=== PATIENT | female | born 1985 | race Caucasian/White ===

== ENCOUNTER 2016-10-11 02:10 | Emergency (ER) | payer MEDICAID ==
[~2016-10-11] VITALS: Ht 162.6 cm; Wt 102.5 kg
[2016-10-11 02:17] VITALS: BP 134/72
--- NOTE | 2016-10-11 02:35 | NUR ---
TO ER BED 5
--- NOTE | 2016-10-11 02:43 | NUR ---
31 Y/O F BIB SPOUSE C/O CHEST PAIN AND RESP DISTRESS. PT SAT 98%, PINK, NO NASAL FLARING NOTED AT THIS MOMENT. COARSE SOUNDS NOTED BILTERAL UPPER/LOWER LOBES, SLIGHTLY WHEEZING TOWARDS MIDDLE CHEST. RT CALLED AT BEDSIDE, ER MD NOTIFIED. PT ON TRAILER SECTIONS ASSEMBLER AND PULSEOXIMETER. VSS.
[2016-10-11] MEDS ORDERED: ALBUTEROL SULFATE/IPRATROPIU 3 ML SOL IH ONE ×2 (02:55→04:05)
[2016-10-11] MEDS ORDERED: LORazepam 2 MG/ML VIAL IVP ONE (02:55)
[2016-10-11] MEDS ORDERED: methylPREDNISolone SS 125 MG in WATER STERILE 2 ML IM ONE (04:05)
--- NOTE | 2016-10-11 05:47 | NUR ---
PT RESTING/ ASLEEP NO S/S OF DISTRESS NOTED AT THIS TIME.
[2016-10-11 06:45] VITALS: BP 127/77
--- NOTE | 2016-10-11 06:45 | NUR ---
Patient discharged with v/s stable. Written and verbal after care instructions given and explained. Patient alert, oriented and verbalized understanding of instructions. Ambulatory with steady gait. All questions addressed prior to discharge. ID band removed. Patient advised to follow up with PMD OR COME BACK IF CONDITION GETS WORSE OR DOES NOT IMPROVES. Rx of ALBUTEROL,QVAR, AND PREDNISONE given. Patient educated on indication of medication including possible reaction and side effects. Opportunity to ask questions provided and answered.
== END 2016-10-11 06:45 | disposition home or self-care (01) ==
LOC: MED 02:10
DX: O99.52 Diseases of the respiratory system complicating childbirth (principal); J98.01 Acute bronchospasm; Z3A.11 11 weeks gestation of pregnancy
CPT/HCPCS: 36415; 83880; 94640; 96372; 99285; J2060; J2930; J7620

== ENCOUNTER 2017-01-23 12:27 | Emergency (ER) | payer MEDICAID ==
[~2017-01-23] VITALS: Ht 162.6 cm; Wt 110.7 kg
[2017-01-23 12:36] VITALS: BP 138/69
--- NOTE | 2017-01-23 13:08 | NUR ---
FHT 146
[2017-01-23] MEDS ORDERED: ACETAMINOPHEN EXTRA STRENGTH 500 MG TAB PO ONE (16:30)
[2017-01-23] MEDS ORDERED: ONDANSETRON 4 MG ODT PO ONE (16:30)
--- NOTE | 2017-01-23 16:30 | NUR ---
32 F PRESENT TO ER C/O BILATERAL UPPER EXTREMITIES PARESTHESIA PAIN AND RIGHT SIDED SHARP PAIN X 3 WKS. WORSE TODAY AND NOW CHEST PAIN x 4 DAYS TO LEFT SHARP----FULL CLEAR SPEECH, SKIN DRY PINK WARM TO TOUCH; DUE DATE 04/19/[address] SAUCEDO OB [phone] HX----DENIES RX---- VIT
--- NOTE | 2017-01-23 16:48 | NUR ---
Patient being evaluated by physician at bedside.
--- NOTE | 2017-01-23 17:31 | NUR ---
PATIENT RESTING. DENIES N/V/D; SKIN IS PINK/WARM/DRY; AAOX4 WITH EVEN AND STEADY GAIT; LUNGS CLEAR BL; HR EVEN AND TACHY; PT DENIES ANY FEVER OR COUGH AT THIS TIME; PATIENT STATES CHEST PAIN PAIN OF 7/10 AT THIS TIME;PATIENT POSITIONED FOR COMFORT; HOB ELEVATED; BEDRAILS UP X2; BED DOWN. ER MD MADE AWARE OF PT STATUS.
--- NOTE | 2017-01-23 17:40 | NUR ---
Patient to be transferred to [facility]. Is being transferred due to HIGHER LEVEL OF CARE. Receiving facility has accepting physician and available space. ER physician has signed transfer form. Patient or responsible republican has agreed to transfer and signed form. Patient belongings inventoried and will be sent with patient. Copy of nursing notes, lab reports, EKG, Physicians Orders and X-rays to be sent with patient. Report called to EMANUEL MOYA at receiving facility. [facility] ambulance service has been called for transfer. ETA is 15-20 MINUTES.
--- NOTE | 2017-01-23 17:52 | NUR ---
[facility] AT BEDSIDE TO TRANSPORT PATIENT TO [facility]
[2017-01-23 17:53] VITALS: BP 131/72
== END 2017-01-23 17:52 | disposition short-term general hospital (02) ==
LOC: MED 12:27
DX: O26.892 Other specified pregnancy related conditions, second trimester (principal); R07.89 Other chest pain; Z3A.26 26 weeks gestation of pregnancy; R06.00 Dyspnea, unspecified
CPT/HCPCS: 81002; 81025; 93970; 99291; S0119

== ENCOUNTER 2017-02-04 16:03 | Observation (INO) | payer MEDICAID ==
[~2017-02-04] VITALS: Ht 157.5 cm; Wt 94.3 kg
[2017-02-04] MEDS ORDERED: PRENATAL VITAMI1 TA2 PO (17:06)
== END 2017-02-04 17:45 | disposition left against medical advice (07) ==
LOC: MLD 16:03
PROVIDERS: ADMIT Obstetrics & Gynecology; ATTEND Obstetrics & Gynecology
DX: O26.893 Other specified pregnancy related conditions, third trimester (principal); R10.13 Epigastric pain; R07.81 Pleurodynia; Z3A.35 35 weeks gestation of pregnancy

== ENCOUNTER 2018-02-15 19:57 | Emergency (ER) | payer MEDICAID ==
[~2018-02-15] VITALS: Ht 157.5 cm; Wt 100.2 kg
[~2018-02-15 19:57] MED LIST: PREN-546 PO
[2018-02-15 19:59] VITALS: BP 139/71
--- NOTE | 2018-02-15 20:03 | NUR ---
TO LOBBY, YVES AGUILAR, A/W BED, PIERCE NOTED
--- NOTE | 2018-02-15 20:15 | NUR ---
PATIENT LEFT WITHOUT BEING SEEN BY DR. MASON. NO FURTHER CARE PROVIDED FOR PATIENT.
== END 2018-02-15 20:15 | disposition left against medical advice (07) ==
LOC: MED 19:57
DX: R06.02 Shortness of breath (principal); R07.9 Chest pain, unspecified; Z53.21 Procedure and treatment not carried out due to patient leaving prior to being seen by health care provider

== ENCOUNTER 2019-03-15 23:51 | Emergency (ER) | payer MEDICAID ==
[~2019-03-15] VITALS: Ht 157.5 cm; Wt 103.4 kg
[2019-03-15 23:56] VITALS: BP 115/75
--- NOTE | 2019-03-16 00:10 | NUR ---
PT AMBULATED W/ STEADY GAIT TO BED 9, URINE SAMPLE PROVIDED.
--- NOTE | 2019-03-16 00:13 | NUR ---
DR. MASON AT BEDSIDE.
[2019-03-16 00:55] LABS: BASOPHILS % (AUTO) 0.2 % (0.0-2.0); EOSINOPHILS # (AUTO) 0.3 K/uL (0-0.4); HEMATOCRIT 35.5 % (36-48); HEMOGLOBIN 11.7 g/dL (12.0-16.0); LYMPHOCYTES # (AUTO) 2.3 K/uL (2.5-16.5); LYMPHOCYTES % (AUTO) 20.2 % (20.5-51.1); MEAN CORPUSCULAR HEMOGLOBIN 27 pg (27-31); MEAN CORPUSCULAR HGB CONC 33 g/dL (33-37); MEAN CORPUSCULAR VOLUME 82.9 fL (80-94); MONOCYTES # (AUTO) 0.7 K/uL (0.8-1.0); MONOCYTES % (AUTO) 6.6 % (1.7-9.3); NEUTROPHILS # (AUTO) 7.8 K/uL (1.8-7.7); PLATELET COUNT (AUTO) 236 K/uL (140-450); RED BLOOD CELL COUNT(AUTO) 4.28 MIL/uL (4.20-5.40); RED CELL DISTRIBUTION WIDTH 15.2 % (11.6-13.7); WHITE BLOOD COUNT (AUTO) 11.2 K/uL (4.8-10.8)
[2019-03-16 00:57] LABS: APPEARANCE,URINE CLEAR (CLEAR); BILIRUBIN,URINE NEGATIVE (NEGATIVE); BLOOD, URINE NEGATIVE (NEGATIVE); COLOR,URINE YELLOW (YELLOW); LEUKOCYTE ESTERASE ,URINE NEGATIVE (NEGATIVE); NITRITE, URINE NEGATIVE (NEGATIVE); PH,URINE 7.5 (5.0-9.0); UGLUCOSE NEGATIVE (NEGATIVE)
--- NOTE | 2019-03-16 01:25 | NUR ---
PT PRESENTS TO ED WITH LOWER ABDOMINAL PAIN THAT RADIATES TO LOWER BACK AND UPPER ABDOMEN. PT CURRENTLY . LMP 01/29/2019. AWAITING DR ASSESSMENT.
[2019-03-16 02:53] VITALS: BP 115/75
== END 2019-03-16 02:54 | disposition home or self-care (01) ==
LOC: MED 23:51
DX: O26.891 Other specified pregnancy related conditions, first trimester (principal); R10.30 Lower abdominal pain, unspecified; Z3A.01 Less than 8 weeks gestation of pregnancy; Z79.899 Other long term (current) drug therapy
CPT/HCPCS: 36415; 76801; 81003; 81025; 84702; 85025; 86900; 86901; 99284; Q0092

== ENCOUNTER 2019-06-14 19:13 | Inpatient (IN) | payer MEDICAID ==
[~2019-06-14] VITALS: Ht 160 cm; Wt 111.1 kg
[2019-06-14] MEDS: NACL 0.9% 1,000 ML IV SCH (01:35)
[2019-06-14 19:27] VITALS: BP 124/86
--- NOTE | 2019-06-14 19:39 | NUR ---
34/F PRESENTED TO ED WITH C/O MID CHEST PAIN 10/10 RADIATING TO BOTH ARMS, X1 HR. DENIES N/V. 5 MONTHS , A1. DENIES VAG BLEED. VITAL SIGNS STABLE. O2 SAT 100% ROOM AIR. HX HTN, ASTHMA; DENIES RX. DENIES ALLERGIES.
--- NOTE | 2019-06-14 19:39 | NUR ---
Note undone in EDM - 06/14/19 at 2057 by [email or web address] 34/F PRESENTED TO ED WITH C/O MID CHEST PAIN 06/20 RADIATING TO BOTH ARMS, X1 HR. DENIES N/V. 5 WEEKS , A1. DENIES VAG BLEED. VITAL SIGNS STABLE. O2 SAT 100% ROOM AIR. HX HTN, ASTHMA; DENIES RX. DENIES ALLERGIES.
[2019-06-14] MEDS ORDERED: NACL 0.9% 1,000 ML IV ONE (20:05)
[2019-06-14] MEDS ORDERED: ACETAMINOPHEN EXTRA STRENGTH 500 MG TAB PO ONE (20:05)
[2019-06-14] MEDS ORDERED: ALBUTEROL SULFATE/IPRATROPIU 3 ML SOL IH ONE (20:05)
[2019-06-14 20:30] LABS: BASOPHILS % (AUTO) 0.1 % (0.0-2.0); EOSINOPHILS # (AUTO) 0.2 K/uL (0-0.4); EOSINOPHILS % (AUTO) 2.1 % (0.0-4.0); HEMATOCRIT 36.1 % (36-48); HEMOGLOBIN 11.7 g/dL (12.0-16.0); LYMPHOCYTES # (AUTO) 1.7 K/uL (2.5-16.5); LYMPHOCYTES % (AUTO) 14.6 % (20.5-51.1); MEAN CORPUSCULAR HEMOGLOBIN 28 pg (27-31); MEAN CORPUSCULAR HGB CONC 32 g/dL (33-37); MEAN CORPUSCULAR VOLUME 85.4 fL (80-94); MONOCYTES # (AUTO) 0.7 K/uL (0.8-1.0); NEUTROPHILS # (AUTO) 9.2 K/uL (1.8-7.7); NEUTROPHILS % (AUTO) 77.2 % (42.2-75.2); PLATELET COUNT (AUTO) 232 K/uL (140-450); RED BLOOD CELL COUNT(AUTO) 4.23 MIL/uL (4.20-5.40); RED CELL DISTRIBUTION WIDTH 15.4 % (11.6-13.7)
--- NOTE | 2019-06-14 20:45 | NUR ---
HHN THERAPY AND RESIRATORY DRUG GIVEN ORDERED ENCOURAGED PATIENT FOR INTERMITTENT DEEP BREATHING DURING THERAPY
[2019-06-14 20:52] LABS: ANION GAP 11.2 (8-16); CREATININE 0.4 mg/dL (0.6-1.3); POTASSIUM 3.2 mmol/L (3.5-5.1)
[2019-06-14 20:56] LABS: ALBUMIN 2.9 g/dL (3.4-5.0); TOTAL BILIRUBIN 0.4 mg/dL (0.0-1.0)
--- NOTE | 2019-06-14 20:56 | NUR ---
X RAY AT BEDSIDE
--- NOTE | 2019-06-14 22:28 | NUR ---
PT IS RESTING IN BED, NO COMPLAINTS AT THIS TIME. WILL CONTINUE TO MONITOR.
[2019-06-14] MEDS ORDERED: methylPREDNISolone SS 40 MG in WATER STERILE 1 ML IV ONE (23:35)
[2019-06-14] MEDS ORDERED: DOCUSATE SODIUM 100 MG GELCAP PO PRN (23:55)
[2019-06-14] MEDS ORDERED: ONDANSETRON 4 MG/2 ML VIAL IM/IVP PRN (23:55)
[2019-06-15] MEDS ORDERED: ALBUTEROL SULFATE/IPRATROPIU 3 ML SOL IH PRN (00:20)
[2019-06-15 00:45] VITALS: BP 118/64
--- NOTE | 2019-06-15 00:45 | NUR ---
RECEIVED BEDSIDE REPORT FROM ED RN AMELIA, FOR PT'S CONTINUITY OF CARE. PT IS AAOX4, AMBULATORY, [place] SPEAKING, ON PRODUCT DEVELOPMENT CARPENTER, ON ROOM AIR, HAS LEFT AC 20G SALINE LOCK, AND C/O CHEST PAIN 04/20. VS CHECKED AND CHARTED. EXPLAINED TO PT DOCKET CLERK ROUTINE, PT VERBALIZED UNDERSTANDING. WILL MONITOR PT THROUGHOUT SHIFT.
--- NOTE | 2019-06-15 00:52 | NUR ---
Patient will be admitted to care of [facility]. Admited to TELE. Will go to room 112B. Belongings list completed. Report to CHERIE CASTELLANOS. PT STABLE FOR TRANSFER
[2019-06-15] MEDS ORDERED: ACETAMINOPHEN 325 MG TAB PO PRN (01:30)
--- NOTE | 2019-06-15 01:45 | NUR ---
ADMINISTERED IV FLUID ORDERED, ADMINISTERED PRN PO PAIN MEDICATION ORDERED. PT TOLERATED THEM WELL. ASSISTED PT TO RESTROOM. WILL CONTINUE TO MONITOR PT.
[2019-06-15] MEDS ORDERED: NITROGLYCERIN 0.4 MG TAB SL ONE (01:50)
[2019-06-15 04:00] VITALS: BP 130/69
[2019-06-15 04:00] LABS: MAGNESIUM 1.7 mg/dL (1.8-2.4); PHOSPHORUS 4.7 mg/dL (2.5-4.9); THYROID STIMULATING HORMONE 1.57 uIU/mL (0.34-3.74)
[2019-06-15 04:06] LABS: PROTHROMBIN TIME 9.3 secs (10.8-13.4)
[2019-06-15] MEDS ORDERED: MAGNESIUM OXIDE 400 MG TAB PO ONE (04:15)
--- NOTE | 2019-06-15 04:15 | NUR ---
VS CHECKED AND CHARTED. PT DENIES ANY PAIN BUT C/O HUNGER. EXPLAINED TO PT NPO STATUS. PT VERBALIZED UNDERSTANDING. WILL CONTINUE TO MONITOR PT.
[2019-06-15 06:47] LABS: BASOPHILS % (AUTO) 0.1 % (0.0-2.0); EOSINOPHILS % (AUTO) 0.3 % (0.0-4.0); HEMATOCRIT 33.3 % (36-48); HEMOGLOBIN 11.1 g/dL (12.0-16.0); LYMPHOCYTES # (AUTO) 1.1 K/uL (2.5-16.5); LYMPHOCYTES % (AUTO) 8.8 % (20.5-51.1); MEAN CORPUSCULAR HEMOGLOBIN 28 pg (27-31); MEAN CORPUSCULAR HGB CONC 33 g/dL (33-37); MONOCYTES # (AUTO) 0.2 K/uL (0.8-1.0); MONOCYTES % (AUTO) 1.7 % (1.7-9.3); NEUTROPHILS # (AUTO) 10.9 K/uL (1.8-7.7); NEUTROPHILS % (AUTO) 89.1 % (42.2-75.2); PLATELET COUNT (AUTO) 226 K/uL (140-450); RED BLOOD CELL COUNT(AUTO) 3.92 MIL/uL (4.20-5.40); RED CELL DISTRIBUTION WIDTH 15.4 % (11.6-13.7); WHITE BLOOD COUNT (AUTO) 12.3 K/uL (4.8-10.8)
[2019-06-15] MEDS: ALBUTEROL SULFATE/IPRATROPIU 3 ML SOL IH SCH ×3 (07:03→19:38)
--- NOTE | 2019-06-15 07:05 | NUR ---
PT C/O OF LEFT SIDE HEADACHE. EXPLAINED TO PT TYLENOL NOT AVAILABLE TO GIVE YET. WILL ENDORSE TO AM SHIFT RN FOR PT'S CONTINUITY OF CARE.
--- NOTE | 2019-06-15 07:06 | NUR ---
RECEIVED BEDSIDE REPORT FROM RECREATION CLERK NURSE FOR CONTINUITY OF CARE. PT IS AAOX4, AMBULATORY, [place]ENLAND[place] SPEAKING, ON LEAD ANDROID DEVELOPER, NO S/S OF SOB OR RESPIRATORY DISTRESS ON ROOM AIR. IV TO LEFT AC 20G, ASYMPTOMATIC, INTACT, AND INFUSING IVF WELL. C/O HEADACHE AT THIS TIME. PATIENT AWARE OF NEXT SCHEDULED TYLENOL. WILL REASSESS PATIENT'S PAIN AND MEDICATE ORDERED. PT CURRENTLY NPO EXCEPT MEDS. UPDATED BOARD. VERBALIZED PLAN OF CARE, PATIENT VERBALIZED UNDERSTANDING. CALL LIGHT WITHIN REACH. WILL CONTINUE TO MONITOR PATIENT.
[2019-06-15 07:08] LABS: CARBON DIOXIDE 20.8 mmol/L (21-32); CREATININE 0.4 mg/dL (0.6-1.3); POTASSIUM 3.8 mmol/L (3.5-5.1)
[2019-06-15 08:00] VITALS: BP 130/66
[2019-06-15] MEDS: ATORVASTATIN 20 MG TAB PO SCH (08:28)
[2019-06-15] MEDS: ASPIRIN 81 MG TAB.CHEW PO SCH (08:28)
[2019-06-15] MEDS: MULTIVIT/MIN/CA/FE/FA 1 TAB PO SCH (08:28)
[2019-06-15] MEDS: LISINOPRIL 5 MG TAB PO SCH ×2 (08:29→09:00)
[2019-06-15] MEDS: FERROUS SULFATE 325 MG TABEC PO SCH (08:31)
--- NOTE | 2019-06-15 08:31 | NUR ---
ORDERED MEDICATIONS GIVEN AT THIS TIME. PATIENT TOLERATED THEM WELL. SPOKE TO DR. LIVINGSTON ABOUT PATIENT'S NPO ORDER. NEW ORDERS IN FOR REGULAR DIET. CALLED DIETARY FOR BREAKFAST TRAY. PATIENT AWARE THAT SHE CAN EAT. LISINOPRIL WITHHELD AT THIS TIME UNTIL SPOKEN TO DOCTOR AND PHARMACIST.
--- NOTE | 2019-06-15 09:20 | NUR ---
DR. LIVINGSTON IN TO SEE PATIENT. WILL WAIT FOR HIS NEW ORDERS.
[2019-06-15 09:23] LABS: MAGNESIUM 1.8 mg/dL (1.8-2.4); PHOSPHORUS 2.7 mg/dL (2.5-4.9)
--- NOTE | 2019-06-15 09:30 | NUR ---
SPOKE TO PHARMACIST ABOUT LISINOPRIL DOSE. SPOKE TO DR. LIVINGSTON. HE STATED HE WILL DISCONTINUE MEDICATION. PATIENT CURRENTLY SITTING UP EATING BREAKFAST IN BED. NO COMPLAINTS AT THIS TIME. OFFERED TYLENOL FOR HEADACHE, PATIENT STATED THAT PAIN IS "PEQUITO", TOLERABLE, NOT REQUESTING FOR PAIN MEDICATION AT THIS TIME. WILL CONTINUE TO MONITOR PATIENT.
[2019-06-15] MEDS ORDERED: methylPREDNISolone SS 40 MG/ML VIAL IVP SCH (11:15)
--- NOTE | 2019-06-15 11:40 | NUR ---
EXPLAINED MEDICATION TO PATIENT. PATIENT VERBALIZED UNDERSTANDING. ORDERED MEDICATION GIVEN AT THIS TIME. PATIENT TOLERATED IT WELL. ALL NEEDS MET AT THIS TIME. NO C/O CHEST PAIN OR NAUSEA. WILL CONTINUE TO MONITOR PATIENT.
[2019-06-15 12:00] VITALS: BP 126/62
--- NOTE | 2019-06-15 12:40 | NUR ---
PATIENT SITTING UP ON SIDE OF BED EATING LUNCH. ALL NEEDS MET AT THIS TIME. CALL LIGHT WITHIN REACH. WILL CONTINUE TO MONITOR PATIENT.
--- NOTE | 2019-06-15 14:05 | NUR ---
AT BEDSIDE. PATIENT RELAXED IN BED WATCHING TV. NO COMPLAINTS OF PAIN OR NAUSEA AT THIS TIME. CALL LIGHT WITHIN REACH, WILL CONTINUE TO MONITOR PATIENT.
[2019-06-15] MEDS: NACL 0.9% 1,000 ML IV SCH (16:35)
[2019-06-15 16:44] VITALS: BP 128/61
--- NOTE | 2019-06-15 18:46 | NUR ---
PATIENT VOIDED. URINE SAMPLE OBTAINED. URINE SAMPLE DROPPED OFF AT LAB. WILL WAIT FOR RESULTS. PATIENT'S HSUBAND AT BEDSIDE. WILL CONTINUE TO MONITOR PATIENT.
--- NOTE | 2019-06-15 18:56 | NUR ---
CALLED LABOR [facility] DELIVERY TO INFORM THEM OF DOCTOR'S ORDER OF HEART TONES TAKEN Q12H. THEY STATED THEY WILL ENDORSE TO SENIOR SALES COMPENSATION ANALYST NURSE.
--- NOTE | 2019-06-15 19:10 | NUR ---
REPORT GIVEN TO ATHLETIC SCOUT NURSE AT BEDSIDE FOR CONTINUITY OF CARE. PATIENT IN STABLE CONDITION.
[2019-06-15 19:15] LABS: APPEARANCE,URINE CLEAR (CLEAR); BILIRUBIN,URINE NEGATIVE (NEGATIVE); BLOOD, URINE NEGATIVE (NEGATIVE); COLOR,URINE YELLOW (YELLOW); LEUKOCYTE ESTERASE ,URINE NEGATIVE (NEGATIVE); NITRITE, URINE NEGATIVE (NEGATIVE); UGLUCOSE 2+ (NEGATIVE)
[2019-06-15 19:18] LABS: BARBITURATE, URINE NEG. ng/ml (NEG <=200); BENZODIAZEPINE, URINE NEG. ng/mL (NEG <=200); CANNABINOID, URINE NEG. ng/mL (NEG <=50); COCAINE, URINE NEG. ng/mL (NEG <=300); OPIATE, URINE NEG. ng/mL (NEG <=2000); PHENCYCLIDINE SCREEN,URINE NEG. ng/mL (NEG <=25)
--- NOTE | 2019-06-15 19:26 | NUR ---
RECEIVED BEDSIDE REPORT FROM DAY SHIFT NURSE. PATIENT IS AWAKE, ALERT, AND COOPERATIVE. RESPIRATION EVEN UNLABORED ON ROOM AIR. NO DISTRESS NOTED. SKIN IS WARM AND DRY. IV PATENT AND INTACT. PLAN OF CARE WAS DISCUSSED. ALL SAFETY MEASURES IN PLACE. BED IS AT LOW POSITION. CALL LIGHT WITHIN REACH AND VERBALIZES ITS USE. WILL CONTINUE TO MONITOR.
[2019-06-15] MEDS: BUDESONIDE 0.5 MG/2 ML NEBU INH SCH (19:39)
[2019-06-15 20:00] VITALS: BP 135/58
--- NOTE | 2019-06-15 20:00 | NUR ---
VITALS WERE TAKEN. INITIAL ASSESSMENT DONE. PATIENT IN STABLE CONDITION. CALL LIGHT WITHIN REACH. WILL CONTINUE TO MONITOR.
[2019-06-15] MEDS ORDERED: MELATONIN 3 MG TAB PO SCH (21:00)
--- NOTE | 2019-06-15 21:00 | NUR ---
ALL SCHEDULED MEDS WERE GIVEN PER ORDER. NO ASE NOTED. WILL CONTINUE TO MONITOR.
[2019-06-15] MEDS: methylPREDNISolone SS 40 MG/ML VIAL IVP SCH (21:20)
--- NOTE | 2019-06-15 22:00 | NUR ---
HEART TONE WAS DONE BY L&D NURSE. HEART RATE 162. NOTIFIED DR. WINTER. NO NEW ORDERS RECEIVED. WILL CONTINUE TO MONITOR.
--- NOTE | 2019-06-15 22:56 | NUR ---
PATIENT SLEEPING RESPIRATION EVEN UNLABORED ON ROOM AIR. NO DISTRESS NOTED. WILL CONTINUE TO MONITOR.
[2019-06-16] VITALS: BP 136/62
--- NOTE | 2019-06-16 | NUR ---
VITALS WERE TAKEN. PATIENT IN STABLE CONDITION. CALL LIGHT WITHIN REACH. WILL CONTINUE TO MONITOR.
--- NOTE | 2019-06-16 02:09 | NUR ---
CHECKED ON PATIENT. PATIENT SLEEPING RESPIRATION EVEN UNLABORED ON ROOM AIR. NO DISTRESS NOTED. CALL LIGHT WITHIN REACH. WILL CONTINUE TO MONITOR.
[2019-06-16 04:00] VITALS: BP 123/62
--- NOTE | 2019-06-16 04:00 | NUR ---
VITALS WERE TAKEN. PATIENT IN STABLE CONDITION. NO DISTRESS NOTED. WILL CONTINUE TO MONITOR.
--- NOTE | 2019-06-16 07:11 | NUR ---
ENDORSED PATIENT TO DAY SHIFT NURSE FOR CONTINUITY OF CARE. PATIENT IN STABLE CONDITION,
--- NOTE | 2019-06-16 07:12 | NUR ---
RECEIVED BEDSIDE REPORT FROM ADJUNCT PHYSICS INSTRUCTOR NURSE FOR CONTINUITY OF CARE. PT IS AAOX4, AMBULATORY, [place] SPEAKING, ON CLOTHES SEPARATOR, NO S/S OF SOB OR RESPIRATORY DISTRESS ON ROOM AIR. IV TO LEFT AC 20G, ASYMPTOMATIC, INTACT, AND INFUSING IVF WELL. PATIENT CURRENTLY GETTING BREATHING TREATMENT. VS WNL. PATIENT DENIES PAIN AND NAUSEA. UPDATED BOARD. VERBALIZED PLAN OF CARE, PATIENT VERBALIZED UNDERSTANDING. CALL LIGHT WITHIN REACH. WILL CONTINUE TO MONITOR PATIENT.
[2019-06-16] MEDS: BUDESONIDE 0.5 MG/2 ML NEBU INH SCH (07:17)
[2019-06-16] MEDS: ALBUTEROL SULFATE/IPRATROPIU 3 ML SOL IH SCH (07:18)
[2019-06-16 08:00] VITALS: BP 123/56
--- NOTE | 2019-06-16 08:40 | NUR ---
DR LIVINGSTON IN TO SPEAK TO THE PATIENT. WILL WAIT FOR HIS ORDERS.
[2019-06-16] MEDS: ATORVASTATIN 20 MG TAB PO SCH (09:00)
[2019-06-16] MEDS: MULTIVIT/MIN/CA/FE/FA 1 TAB PO SCH (09:14)
[2019-06-16] MEDS: FERROUS SULFATE 325 MG TABEC PO SCH (09:14)
[2019-06-16] MEDS: ASPIRIN 81 MG TAB.CHEW PO SCH (09:15)
[2019-06-16] MEDS: NACL 0.9% 1,000 ML IV SCH (09:15)
--- NOTE | 2019-06-16 09:15 | NUR ---
ORDERED MEDICATIONS GIVEN. PATIENT TOLERATED THEM WELL. AT BEDSIDE. PATIENT AWARE OF IMPENDING DISCHARGE. WILL UPDATED PATIENT ON DISCHARGE STATUS. PATIENT VERBALIZED UNDERSTANDING. WILL CONTINUE TO MONITOR PATIENT.
[2019-06-16] MEDS: methylPREDNISolone SS 40 MG/ML VIAL IVP SCH (09:18)
[2019-06-16] MEDS ORDERED: BUDE180P IH (09:48)
[2019-06-16] MEDS ORDERED: ALBU0.0912 IH (09:48)
--- NOTE | 2019-06-16 10:35 | NUR ---
DISCHARGE INSTRUCTIONS AND EDUCATION GIVEN TO PATIENT. [employer] PHONE USED, TERMITE CONTROL SERVICER #[id number]. INFORM PATIENT TO FOLLOW UP WITH PCP AND HEEL DIPPER, TAKE MEDICATIONS PRESCRIBED AND NEEDED. PATIENT VERBALIZED UNDERSTANDING. AT SIDE. ID BANDS CUT, IV REMOVED, IV CATHETER INTACT, MINIMAL BLEEDING NOTED, TELE MONITOR REMOVED. PATIENT WILL NOW CHANGE INTO HER OWN CLOTHING TO GET READY TO BE DISCHARGED HOME.
--- NOTE | 2019-06-16 10:50 | NUR ---
PATIENT AMBULATED OFF FLOOR WITH . PATIENT TOOK ALL HER BELONGINGS WITH HER. PATIENT IN STABLE CONDITION.
== END 2019-06-16 10:50 | disposition home or self-care (01) | DRG 566 ==
LOC: MED 19:13 → MTU 23:55
PROVIDERS: ADMIT Family Medicine; ATTEND Family Medicine
DX: O99.612 Diseases of the digestive system complicating pregnancy, second trimester (principal); J96.00 Acute respiratory failure, unspecified whether with hypoxia or hypercapnia; E44.0 Moderate protein-calorie malnutrition; E66.01 Morbid (severe) obesity due to excess calories; Z68.41 Body mass index [BMI] 40.0-44.9, adult; O26.892 Other specified pregnancy related conditions, second trimester; J45.901 Unspecified asthma with (acute) exacerbation; E83.42 Hypomagnesemia; O99.112 Other diseases of the blood and blood-forming organs and certain disorders involving the immune mechanism complicating pregnancy, second trimester; O99.512 Diseases of the respiratory system complicating pregnancy, second trimester; O99.282 Endocrine, nutritional and metabolic diseases complicating pregnancy, second trimester; E87.6 Hypokalemia; O99.212 Obesity complicating pregnancy, second trimester; O99.322 Drug use complicating pregnancy, second trimester; F15.90 Other stimulant use, unspecified, uncomplicated; K21.9 Gastro-esophageal reflux disease without esophagitis; M94.0 Chondrocostal junction syndrome [Tietze]; D72.828 Other elevated white blood cell count; Z82.5 Family history of asthma and other chronic lower respiratory diseases; Z83.3 Family history of diabetes mellitus; Z82.3 Family history of stroke; Z82.49 Family history of ischemic heart disease and other diseases of the circulatory system; Z3A.20 20 weeks gestation of pregnancy; T38.0X5A Adverse effect of glucocorticoids and synthetic analogues, initial encounter; Y92.89 Other specified places as the place of occurrence of the external cause
CPT/HCPCS: 36415; 71045; 80048; 80053; 80305; 81003; 81025; 82150; 83036; 83605; 83690; 83735; 83880; 84100; 84436; 84443; 84484; 85025; 85610; 85730; 87081; 87804; 93005; 94640; 96361; 96374; 99285; J2920; J7030; J7620; J7626; Q0092

== ENCOUNTER 2019-07-18 12:05 | Observation (INO) | payer MEDICAID ==
[~2019-07-18] VITALS: Ht 157.5 cm; Wt 115.2 kg
[~2019-07-18 12:05] MED LIST changes: +ALBU0.0912 IH; +BUDE180P IH
[2019-07-18] MEDS ORDERED: ACETAMINOPHEN 325 MG TAB PO PRN (13:30)
[2019-07-18 14:29] LABS: BASOPHILS % (AUTO) 0.3 % (0.0-2.0); EOSINOPHILS # (AUTO) 0.2 K/uL (0-0.4); EOSINOPHILS % (AUTO) 1.9 % (0.0-4.0); HEMATOCRIT 35.6 % (36-48); HEMOGLOBIN 11.7 g/dL (12.0-16.0); LYMPHOCYTES # (AUTO) 1.5 K/uL (2.5-16.5); LYMPHOCYTES % (AUTO) 13.6 % (20.5-51.1); MEAN CORPUSCULAR HEMOGLOBIN 28 pg (27-31); MEAN CORPUSCULAR HGB CONC 33 g/dL (33-37); MEAN CORPUSCULAR VOLUME 85.2 fL (80-94); MONOCYTES # (AUTO) 0.8 K/uL (0.8-1.0); MONOCYTES % (AUTO) 6.7 % (1.7-9.3); NEUTROPHILS # (AUTO) 8.8 K/uL (1.8-7.7); NEUTROPHILS % (AUTO) 77.5 % (42.2-75.2); PLATELET COUNT (AUTO) 233 K/uL (140-450); RED BLOOD CELL COUNT(AUTO) 4.17 MIL/uL (4.20-5.40); RED CELL DISTRIBUTION WIDTH 15.9 % (11.6-13.7); WHITE BLOOD COUNT (AUTO) 11.4 K/uL (4.8-10.8)
[2019-07-18 14:30] LABS: BILIRUBIN,URINE NEGATIVE (NEGATIVE); BLOOD, URINE NEGATIVE (NEGATIVE); COLOR,URINE YELLOW (YELLOW); LEUKOCYTE ESTERASE ,URINE NEGATIVE (NEGATIVE); NITRITE, URINE NEGATIVE (NEGATIVE); UGLUCOSE 1+ (NEGATIVE)
[2019-07-18 14:36] LABS: BARBITURATE, URINE NEG. ng/ml (NEG <=200); BENZODIAZEPINE, URINE NEG. ng/mL (NEG <=200); CANNABINOID, URINE NEG. ng/mL (NEG <=50); COCAINE, URINE NEG. ng/mL (NEG <=300); OPIATE, URINE NEG. ng/mL (NEG <=2000); PHENCYCLIDINE SCREEN,URINE NEG. ng/mL (NEG <=25)
[2019-07-18 14:39] LABS: APPEARANCE,URINE CLEAR (CLEAR)
[2019-07-18 15:28] LABS: PROTHROMBIN TIME 9.4 secs (10.8-13.4)
[2019-07-18 15:33] LABS: CARBON DIOXIDE 22.6 mmol/L (21-32); CREATININE 0.5 mg/dL (0.6-1.3); POTASSIUM 3.6 mmol/L (3.5-5.1)
[2019-07-18 15:39] LABS: ALBUMIN 2.6 g/dL (3.4-5.0); TOTAL BILIRUBIN 0.4 mg/dL (0.0-1.0); URIC ACID 3.5 mg/dL (2.6-7.2)
== END 2019-07-18 14:40 | disposition home or self-care (01) ==
LOC: MLD 12:05
PROVIDERS: ADMIT Obstetrics & Gynecology; ATTEND Obstetrics & Gynecology
DX: O99.342 Other mental disorders complicating pregnancy, second trimester (principal); F41.9 Anxiety disorder, unspecified; Z3A.26 26 weeks gestation of pregnancy
CPT/HCPCS: 36415; 76805; 80053; 80305; 81003; 84550; 85025; 85384; 85610; 85730; G0378; Q0092

== ENCOUNTER 2019-08-24 13:56 | Emergency (ER) | payer MEDICAID ==
[~2019-08-24] VITALS: Ht 165.1 cm; Wt 117.9 kg
[2019-08-24 13:58] VITALS: BP 142/86
--- NOTE | 2019-08-24 13:58 | NUR ---
TO BED # 08 AMBULATORY
--- NOTE | 2019-08-24 14:12 | NUR ---
34/F C/O SOB, FOR 3 DAYS,COUGH, NO VAG BLEEDING, , LMP JANUARY 18. PATIENT STATES PAIN OF 0/10 AT THIS TIME; PATIENT POSITIONED FOR COMFORT; HOB ELEVATED; BEDRAILS UP X1; BED DOWN. ER MD MADE AWARE OF PT STATUS.
--- NOTE | 2019-08-24 14:12 | NUR ---
Note undone in EDM - 08/24/19 at 1636 by MED1 34/F C/O SOB, FOR 3 DAYS,COUGH, NO VAG BLEEDING, NOR LOWER ABDOMINAL ,AND BACK PAIN, , LMP JANUARY 18. PATIENT STATES PAIN OF 7/10 AT THIS TIME; PATIENT POSITIONED FOR COMFORT; HOB ELEVATED; BEDRAILS UP X1; BED DOWN. ER MADE AWARE OF PT STATUS.
[2019-08-24] MEDS ORDERED: ALBUTEROL SULFATE/IPRATROPIU 3 ML SOL IH ONE ×2 (14:15→14:50)
--- NOTE | 2019-08-24 14:25 | NUR ---
INFLUENZA SWAB DONE.
--- NOTE | 2019-08-24 14:27 | NUR ---
RT AT BEDSIDE FOR BREATHING TREATMENT.
--- NOTE | 2019-08-24 14:55 | NUR ---
FOLLOW UP HHN THERAPY AND RESPIRATORY DRUG GIVEN ORDERED
[2019-08-24] MEDS ORDERED: NACL 0.9% 1,000 ML IV ONE (15:30)
[2019-08-24] MEDS ORDERED: ALBUTEROL 0.083% 2.5 MG/3 ML NEBU INH ONE (15:30)
[2019-08-24] MEDS ORDERED: AZITHROMYCIN 250 MG TAB PO ONE (15:35)
[2019-08-24] MEDS ORDERED: IPRATROPIUM 0.02% 0.5 MG/2.5 ML NEBU INH ONE (15:35)
[2019-08-24] MEDS ORDERED: MAG SULF 2000 MG/WATER PREMIX 50 ML IV ONE (15:35)
--- NOTE | 2019-08-24 15:48 | NUR ---
FOLLOW UP HHN THERAPY AND RESPIRATORY DRUG GIVEN ORDERED
[2019-08-24 16:18] LABS: BASOPHILS % (AUTO) 0.2 % (0.0-2.0); EOSINOPHILS # (AUTO) 0.2 K/uL (0-0.4); EOSINOPHILS % (AUTO) 1.8 % (0.0-4.0); HEMATOCRIT 35.2 % (36-48); HEMOGLOBIN 11.5 g/dL (12.0-16.0); LYMPHOCYTES # (AUTO) 1.6 K/uL (2.5-16.5); LYMPHOCYTES % (AUTO) 17.4 % (20.5-51.1); MEAN CORPUSCULAR HEMOGLOBIN 28 pg (27-31); MEAN CORPUSCULAR HGB CONC 33 g/dL (33-37); MEAN CORPUSCULAR VOLUME 85.9 fL (80-94); MONOCYTES # (AUTO) 0.7 K/uL (0.8-1.0); MONOCYTES % (AUTO) 7.9 % (1.7-9.3); NEUTROPHILS # (AUTO) 6.9 K/uL (1.8-7.7); NEUTROPHILS % (AUTO) 72.7 % (42.2-75.2); PLATELET COUNT (AUTO) 180 K/uL (140-450); RED CELL DISTRIBUTION WIDTH 16.1 % (11.6-13.7); WHITE BLOOD COUNT (AUTO) 9.4 K/uL (4.8-10.8)
[2019-08-24 16:25] LABS: APPEARANCE,URINE SL CLOUDY (CLEAR); BILIRUBIN,URINE NEGATIVE (NEGATIVE); BLOOD, URINE NEGATIVE (NEGATIVE); COLOR,URINE YELLOW (YELLOW); LEUKOCYTE ESTERASE ,URINE TRACE (NEGATIVE); NITRITE, URINE NEGATIVE (NEGATIVE); PH,URINE 6.5 (5.0-9.0); UGLUCOSE 2+ (NEGATIVE)
[2019-08-24 16:48] LABS: CARBON DIOXIDE 25.7 mmol/L (21-32); CREATININE 0.5 mg/dL (0.6-1.3); POTASSIUM 3.7 mmol/L (3.5-5.1)
[2019-08-24 16:54] LABS: ALBUMIN 2.4 g/dL (3.4-5.0); TOTAL BILIRUBIN 0.5 mg/dL (0.0-1.0)
[2019-08-24 17:18] LABS: RBC,URINE NONE SEEN /HPF (0-5)
[2019-08-24 17:29] VITALS: BP 121/60
--- NOTE | 2019-08-24 17:29 | NUR ---
Patient discharged with v/s stable. Written and verbal after care instructions given and explained. Patient alert, oriented and verbalized understanding of instructions. Ambulatory with to car. All questions addressed prior to discharge. ID band removed. Patient advised to follow up with PMD. Rx of ALBUTEROL & AZITHROMYCIN given. Patient educated on indication of medication including possible reaction and side effects. Opportunity to ask questions provided and answered.
== END 2019-08-24 17:29 | disposition home or self-care (01) ==
LOC: MED 13:56
DX: O99.513 Diseases of the respiratory system complicating pregnancy, third trimester (principal); R06.02 Shortness of breath; R06.2 Wheezing; Z3A.30 30 weeks gestation of pregnancy; Z79.899 Other long term (current) drug therapy; Z79.51 Long term (current) use of inhaled steroids
CPT/HCPCS: 36415; 80053; 81001; 85025; 87086; 87804; 94640; 96365; 99285; J3475; J7030; J7620; J7644

== ENCOUNTER 2019-09-14 14:29 | Emergency (ER) | payer MEDICAID ==
[~2019-09-14] VITALS: Ht 160 cm; Wt 68.9 kg
[2019-09-14 15:04] VITALS: BP 140/84
--- NOTE | 2019-09-14 15:08 | NUR ---
pt sent to lobby ekg done in triage; signed by dr ramirez
--- NOTE | 2019-09-14 15:12 | NUR ---
PT AMBULATED TO BED 10.
--- NOTE | 2019-09-14 15:18 | NUR ---
34 Y/O F C/O LT SIDED CHEST PAIN WITH INTERMITENT RT ARM NUMBNESS X2 DAYS. PT IS 34 WEEKS . PITTING EDEMA X1 BILATERAL LEGS. PT VS STABLE. PT HOOKED UP TO MONITORS, 02 99% HR NS 102. NKA
--- NOTE | 2019-09-14 15:22 | NUR ---
LAB AT BEDSIDE DRAWING ORDERED LAB WORK
--- NOTE | 2019-09-14 15:26 | NUR ---
UA COLLECTED, SENT TO LAB
--- NOTE | 2019-09-14 15:27 | NUR ---
MD AT BEDSIDE EXAMINING PATIENT.
[2019-09-14] MEDS ORDERED: ALBUTEROL SULFATE/IPRATROPIU 3 ML SOL IH ONE (15:35)
[2019-09-14 15:39] LABS: BASOPHILS % (AUTO) 0.4 % (0.0-2.0); EOSINOPHILS # (AUTO) 0.1 K/uL (0-0.4); EOSINOPHILS % (AUTO) 1.4 % (0.0-4.0); HEMATOCRIT 34.6 % (36-48); HEMOGLOBIN 11.2 g/dL (12.0-16.0); LYMPHOCYTES # (AUTO) 1.5 K/uL (2.5-16.5); LYMPHOCYTES % (AUTO) 16.4 % (20.5-51.1); MEAN CORPUSCULAR HEMOGLOBIN 27 pg (27-31); MEAN CORPUSCULAR HGB CONC 33 g/dL (33-37); MEAN CORPUSCULAR VOLUME 84.3 fL (80-94); MONOCYTES # (AUTO) 0.8 K/uL (0.8-1.0); MONOCYTES % (AUTO) 9.1 % (1.7-9.3); NEUTROPHILS # (AUTO) 6.5 K/uL (1.8-7.7); NEUTROPHILS % (AUTO) 72.7 % (42.2-75.2); PLATELET COUNT (AUTO) 179 K/uL (140-450); RED CELL DISTRIBUTION WIDTH 15.8 % (11.6-13.7); WHITE BLOOD COUNT (AUTO) 8.9 K/uL (4.8-10.8)
[2019-09-14 15:54] LABS: ANION GAP 15.2 (8-16); CARBON DIOXIDE 23.4 mmol/L (21-32); CREATININE 0.4 mg/dL (0.6-1.3); POTASSIUM 3.6 mmol/L (3.5-5.1)
[2019-09-14 16:03] LABS: ALBUMIN 2.2 g/dL (3.4-5.0); TOTAL BILIRUBIN 0.4 mg/dL (0.0-1.0)
--- NOTE | 2019-09-14 16:29 | NUR ---
PT STATES SHE IS ABLE TO BREATH BETTER, DEEPER BREATHS, AFTER BREATHING TREATMENT. VS STABLE. PT RESTING COMFORTABLY.
--- NOTE | 2019-09-14 16:45 | NUR ---
Dr. Lees is evaluatign the patient at bedside.
[2019-09-14 17:09] VITALS: BP 128/68
== END 2019-09-14 17:11 | disposition home or self-care (01) ==
LOC: MED 14:29
DX: O26.893 Other specified pregnancy related conditions, third trimester (principal); J45.909 Unspecified asthma, uncomplicated; Z79.899 Other long term (current) drug therapy; Z3A.35 35 weeks gestation of pregnancy
CPT/HCPCS: 36415; 80053; 83880; 84484; 85025; 94640; 99283; J7620

== ENCOUNTER 2019-09-17 12:53 | Observation (INO) | payer MEDICAID ==
[~2019-09-17] VITALS: Ht 154.9 cm; Wt 81.6 kg
[2019-09-17 13:54] LABS: BASOPHILS % (AUTO) 0.1 % (0.0-2.0); EOSINOPHILS # (AUTO) 0.1 K/uL (0-0.4); EOSINOPHILS % (AUTO) 1.3 % (0.0-4.0); HEMATOCRIT 36.3 % (36-48); HEMOGLOBIN 11.7 g/dL (12.0-16.0); LYMPHOCYTES # (AUTO) 1.4 K/uL (2.5-16.5); LYMPHOCYTES % (AUTO) 15.6 % (20.5-51.1); MEAN CORPUSCULAR HEMOGLOBIN 27 pg (27-31); MEAN CORPUSCULAR HGB CONC 32 g/dL (33-37); MEAN CORPUSCULAR VOLUME 84.3 fL (80-94); MONOCYTES # (AUTO) 0.7 K/uL (0.8-1.0); MONOCYTES % (AUTO) 7.5 % (1.7-9.3); NEUTROPHILS # (AUTO) 6.9 K/uL (1.8-7.7); NEUTROPHILS % (AUTO) 75.5 % (42.2-75.2); PLATELET COUNT (AUTO) 188 K/uL (140-450); RED BLOOD CELL COUNT(AUTO) 4.31 MIL/uL (4.20-5.40); RED CELL DISTRIBUTION WIDTH 15.7 % (11.6-13.7); WHITE BLOOD COUNT (AUTO) 9.1 K/uL (4.8-10.8)
[2019-09-17 14:15] LABS: PROTHROMBIN TIME 9.7 secs (10.8-13.4)
[2019-09-17 14:16] LABS: ANION GAP 12.9 (8-16); CARBON DIOXIDE 22.6 mmol/L (21-32); CREATININE 0.5 mg/dL (0.6-1.3); POTASSIUM 3.5 mmol/L (3.5-5.1)
[2019-09-17 14:17] LABS: APPEARANCE,URINE CLEAR (CLEAR); BILIRUBIN,URINE NEGATIVE (NEGATIVE); BLOOD, URINE NEGATIVE (NEGATIVE); COLOR,URINE YELLOW (YELLOW); LEUKOCYTE ESTERASE ,URINE TRACE (NEGATIVE); NITRITE, URINE NEGATIVE (NEGATIVE); PH,URINE 6.5 (5.0-9.0); UGLUCOSE NEGATIVE (NEGATIVE)
[2019-09-17 14:21] LABS: BARBITURATE, URINE NEG. ng/ml (NEG <=200); BENZODIAZEPINE, URINE NEG. ng/mL (NEG <=200); CANNABINOID, URINE NEG. ng/mL (NEG <=50); COCAINE, URINE NEG. ng/mL (NEG <=300); OPIATE, URINE NEG. ng/mL (NEG <=2000); PHENCYCLIDINE SCREEN,URINE NEG. ng/mL (NEG <=25)
[2019-09-17 14:22] LABS: ALBUMIN 2.4 g/dL (3.4-5.0); TOTAL BILIRUBIN 0.5 mg/dL (0.0-1.0)
[2019-09-17 14:28] LABS: CALCIUM OXALATE CRYSTALS,UR 0-10 /HPF (None Seen); RBC,URINE NONE SEEN /HPF (0-5); WBC,URINE 0-5 /HPF (0-5)
[2019-09-17] MEDS ORDERED: AZIT250T3 PO (15:15)
[2019-09-17] MEDS ORDERED: HYDR25CA32 PO (15:15)
[2019-09-17 17:05] VITALS: BP 134/78
== END 2019-09-17 19:25 | disposition home or self-care (01) ==
LOC: MLD 12:53
PROVIDERS: ADMIT Obstetrics & Gynecology; ATTEND Obstetrics & Gynecology
DX: O13.3 Gestational [pregnancy-induced] hypertension without significant proteinuria, third trimester (principal); O99.213 Obesity complicating pregnancy, third trimester; O99.413 Diseases of the circulatory system complicating pregnancy, third trimester; R07.9 Chest pain, unspecified; Z3A.33 33 weeks gestation of pregnancy; Z79.899 Other long term (current) drug therapy
CPT/HCPCS: 36415; 76819; 80053; 80305; 81001; 84157; 85025; 85384; 85610; 85730; 87086; G0378; Q0092

== ENCOUNTER 2019-10-10 11:23 | Inpatient (IN) | payer MEDICAID ==
[~2019-10-10] VITALS: Ht 165.1 cm; Wt 127.0 kg
[~2019-10-10 11:23] MED LIST changes: +AZIT250T3 PO; +HYDR25CA32 PO
[2019-10-10] MEDS ORDERED: CARBOPROST 250 MCG/ML AMP IM PRN (11:40)
[2019-10-10] MEDS ORDERED: METHYLERGONOVINE 0.2 MG/ML AMP IM PRN (11:40)
[2019-10-10] MEDS ORDERED: OXYTOCIN 20 UNITS in LACTATED RINGERS 1,000 ML IV SCH (11:50)
[2019-10-10] MEDS ORDERED: LEVALBUTEROL 1.25 MG/0.5 ML NEBU INH PRN (11:55)
[2019-10-10] MEDS ORDERED: ALBUTEROL HFA MDI 90 MCG/ACTUATION 8 GM INH PRN (12:30)
[2019-10-10 12:38] LABS: BASOPHILS % (AUTO) 0.2 % (0.0-2.0); EOSINOPHILS # (AUTO) 0.1 K/uL (0-0.4); EOSINOPHILS % (AUTO) 1.5 % (0.0-4.0); HEMATOCRIT 35.9 % (36-48); HEMOGLOBIN 11.9 g/dL (12.0-16.0); LYMPHOCYTES # (AUTO) 1.5 K/uL (2.5-16.5); LYMPHOCYTES % (AUTO) 17.3 % (20.5-51.1); MEAN CORPUSCULAR HEMOGLOBIN 27 pg (27-31); MEAN CORPUSCULAR HGB CONC 33 g/dL (33-37); MEAN CORPUSCULAR VOLUME 83.1 fL (80-94); MONOCYTES # (AUTO) 0.7 K/uL (0.8-1.0); MONOCYTES % (AUTO) 8.2 % (1.7-9.3); NEUTROPHILS # (AUTO) 6.5 K/uL (1.8-7.7); NEUTROPHILS % (AUTO) 72.8 % (42.2-75.2); PLATELET COUNT (AUTO) 193 K/uL (140-450); RED BLOOD CELL COUNT(AUTO) 4.32 MIL/uL (4.20-5.40); RED CELL DISTRIBUTION WIDTH 15.9 % (11.6-13.7); WHITE BLOOD COUNT (AUTO) 8.9 K/uL (4.8-10.8)
[2019-10-10] MEDS: LACTATED RINGERS 1,000 ML IV SCH ×2 (13:00→20:39)
[2019-10-10 13:33] LABS: PROTHROMBIN TIME 9.4 secs (10.8-13.4)
[2019-10-10 13:36] VITALS: BP 137/78
[2019-10-10] MEDS: ALBUTEROL 0.083% 2.5 MG/3 ML NEBU INH PRN ×2 (13:36→21:20)
[2019-10-10 13:49] LABS: APPEARANCE,URINE CLEAR (CLEAR); BILIRUBIN,URINE NEGATIVE (NEGATIVE); BLOOD, URINE NEGATIVE (NEGATIVE); COLOR,URINE YELLOW (YELLOW); LEUKOCYTE ESTERASE ,URINE NEGATIVE (NEGATIVE); NITRITE, URINE NEGATIVE (NEGATIVE); UGLUCOSE NEGATIVE (NEGATIVE)
[2019-10-10 14:16] LABS: POTASSIUM 4.1 mmol/L (3.5-5.1)
[2019-10-10 14:32] LABS: BARBITURATE, URINE NEG. ng/ml (NEG <=200); BENZODIAZEPINE, URINE NEG. ng/mL (NEG <=200); CANNABINOID, URINE NEG. ng/mL (NEG <=50); COCAINE, URINE NEG. ng/mL (NEG <=300); OPIATE, URINE NEG. ng/mL (NEG <=2000); PHENCYCLIDINE SCREEN,URINE NEG. ng/mL (NEG <=25)
[2019-10-10 14:36] LABS: ALBUMIN 2.3 g/dL (3.4-5.0); ANION GAP 16.5 (8-16); CARBON DIOXIDE 21.6 mmol/L (21-32); CREATININE 0.5 mg/dL (0.6-1.3); TOTAL BILIRUBIN 0.4 mg/dL (0.0-1.0)
[2019-10-10 14:38] LABS: URIC ACID 3.4 mg/dL (2.6-7.2)
[2019-10-10] MEDS ORDERED: OXYTOCIN 20 UNITS/LR PREMIX 1,000 ML IV ONE (16:11)
[2019-10-10] MEDS ORDERED: BUPIVACAINE 0.125%/NS PREMIX 250 ML ONE (23:52)
[2019-10-10] MEDS ORDERED: EPIDURAL KEYS MC ONE (23:53)
[2019-10-11] MEDS: LACTATED RINGERS 1,000 ML IV SCH (00:30)
--- NOTE | 2019-10-11 01:42 | NUR ---
ASSESSED PT, B.S CLEAR BILATERALLY. NO SOB NOTED. PT MADE AWARE OF PRN BREATHING TX ORDER. NURSE MADE AWARE.
[2019-10-11] MEDS: LORazepam 2 MG/ML VIAL IVP PRN ×3 (08:44→18:59)
--- NOTE | 2019-10-11 08:48 | NUR ---
PATIENT HAS BEEN SCREENED AND CATEGORIZED LOW NUTRITION RISK. PATIENT WILL BE SEEN WITHIN 7 DAYS OF ADMISSION. 10/16/[address]
[2019-10-11] MEDS: ALBUTEROL 0.083% 2.5 MG/3 ML NEBU INH PRN (13:10)
[2019-10-11] MEDS ORDERED: BUPIVACAINE 0.125%/NS PREMIX 250 ML ONE (17:23)
[2019-10-11] MEDS ORDERED: ceFAZolin 1,000 MG VIAL ONE (20:53)
[2019-10-11] MEDS ORDERED: MORPHINE PRES FREE 10 MG/10 ML AMP IV ONE (21:10)
[2019-10-11] MEDS ORDERED: OXYTOCIN 20 UNITS in LACTATED RINGERS 1,000 ML IV SCH (22:01)
[2019-10-11] MEDS ORDERED: NALBUPHINE 10 MG/ML AMP IVP PRN (22:05)
[2019-10-11] MEDS ORDERED: diphenhydrAMINE 50 MG/ML VIAL IVP PRN ×2 (22:05)
[2019-10-11] MEDS ORDERED: HYDROmorphone 1 MG/ML AMP IVP PRN (22:05)
[2019-10-11] MEDS ORDERED: ONDANSETRON 4 MG/2 ML VIAL IVP PRN ×2 (22:05)
[2019-10-11] MEDS ORDERED: MEPERIDINE 25 MG/ML SYR IVP PRN (22:05)
[2019-10-11] MEDS ORDERED: NALOXONE 0.4 MG/ML VIAL IVP PRN ×3 (22:05)
[2019-10-11] MEDS ORDERED: MEASLES, MUMPS, AND RUBELLA 1 VIAL SQVAC PRN (22:55)
[2019-10-11] MEDS ORDERED: OXYTOCIN 20 UNITS/LR PREMIX 1,000 ML IV ONE (22:59)
[2019-10-12] MEDS ORDERED: KETOROLAC 30 MG/ML VIAL IM/IVP SCH
[2019-10-12] MEDS ORDERED: oxyCODONE/APAP 5/325 MG 1 TAB TAB PO SCH
[2019-10-12] MEDS: KETOROLAC 30 MG/ML VIAL IM/IVP SCH ×5 (00:15→23:44)
[2019-10-12] MEDS: OXYTOCIN 20 UNITS in LACTATED RINGERS 1,000 ML IV SCH ×2 (06:11→15:00)
[2019-10-12 06:46] LABS: BASOPHILS # (AUTO) 0.1 K/uL (0.00-0.22); BASOPHILS % (AUTO) 0.4 % (0.0-2.0); EOSINOPHILS % (AUTO) 0.1 % (0.0-4.0); HEMATOCRIT 31.2 % (36-48); HEMOGLOBIN 10.2 g/dL (12.0-16.0); LYMPHOCYTES # (AUTO) 1.3 K/uL (2.5-16.5); LYMPHOCYTES % (AUTO) 8.9 % (20.5-51.1); MEAN CORPUSCULAR HEMOGLOBIN 27 pg (27-31); MEAN CORPUSCULAR HGB CONC 33 g/dL (33-37); MEAN CORPUSCULAR VOLUME 83.1 fL (80-94); MONOCYTES # (AUTO) 1.4 K/uL (0.8-1.0); MONOCYTES % (AUTO) 9.5 % (1.7-9.3); NEUTROPHILS # (AUTO) 12.2 K/uL (1.8-7.7); NEUTROPHILS % (AUTO) 81.1 % (42.2-75.2); PLATELET COUNT (AUTO) 176 K/uL (140-450); RED BLOOD CELL COUNT(AUTO) 3.75 MIL/uL (4.20-5.40)
[2019-10-12] MEDS ORDERED: oxyCODONE/APAP 5/325 MG 1 TAB TAB PO PRN (07:40)
[2019-10-13] MEDS: KETOROLAC 30 MG/ML VIAL IM/IVP SCH (05:58)
[2019-10-13] MEDS: BISACODYL 10 MG SUPP RC SCH (09:10)
[2019-10-13] MEDS ORDERED: IBUPROFEN 800 MG TAB PO PRN (10:50)
[2019-10-13] MEDS: SIMETHICONE 80 MG TAB.CHEW PO PRN ×2 (13:10→18:20)
[2019-10-13] MEDS: oxyCODONE/APAP 5/325 MG 1 TAB TAB PO PRN ×2 (14:38→21:37)
[2019-10-13] MEDS: FERROUS SULFATE 325 MG TABEC PO SCH (18:21)
--- NOTE | 2019-10-13 20:53 | NUR ---
RECEIVED PT FROM AM SHIFT ON ROOM AIR WITH AN SP02 OF 98% AND A CLEAR BREATH SOUNDS. NO RESPIRATORY DISTRESS NOTED AT THIS TIME. NO INDICATION FOR HHN PRN TX. WILL CONTINUE TO MONITOR PT.
[2019-10-14] MEDS: SIMETHICONE 80 MG TAB.CHEW PO PRN (08:38)
[2019-10-14] MEDS: FERROUS SULFATE 325 MG TABEC PO SCH (08:38)
[2019-10-14] MEDS: BISACODYL 10 MG SUPP RC SCH (09:51)
[2019-10-14] MEDS ORDERED: CAMERA MC ONE (09:57)
--- NOTE | 2019-10-14 12:54 | NUR ---
Charge Account Identification Clerk Note: SW attempted to meet with patient regarding patient being positive for methamphetamine use. Patient was with Rosita [facility] Charge Account Identification Clerk for [facility] [phone]. Rosita Forrester met with SW regarding patient. Per Rosita, CPS is unable to detain patient at this moment but will follow up with patient tomorrow. Rosita expressed concern regarding address given by patient, and stated that patient provided 3 different addresses. Patient is a Azeri-speaker and was endorsed to [employer] [place]. Tonja stated she will follow up with patient.
--- NOTE | 2019-10-14 13:10 | NUR ---
Leather Stamper Note: I was informed by patient's nurse Stephanie, Leather Stamper from [facility] told her that patient and her can be discharged home upon discharge. I met with patient and patient's Yrn Quijano at bedside. Patient and Yrn speak Irish. Patient lives at home with Yrn and plans to return home upon discharge. Patient reported she has been following up with . She denied alcohol/substance abuse or having an open CPS case. She denied hx of mental health. She alleged she was mistreated by [facility] nurses and MD, she stated she was experiencing a lot of pain and was ignored by staff. She told me she was given a lot of medication and was accused of being "high" by staff, I informed Director of [facility] and L & D dept Lolis Blevins of patient's concerns, she stated she will follow up with grievance. I explained to patient and Yrn there will be a follow up regarding grievance. They both verbalized understanding.
== END 2019-10-14 14:20 | disposition home or self-care (01) | DRG 540 ==
LOC: MLD 11:23 → MFCC 10-11 23:45
PROVIDERS: ADMIT Obstetrics & Gynecology; ATTEND Obstetrics & Gynecology
PROC: 10D00Z1 Extraction of Products of Conception, Low, Open Approach (ICD-10-PCS; principal; 2019-10-11 21:00)
PROC: 3E0234Z Introduction of Serum, Toxoid and Vaccine into Muscle, Percutaneous Approach (ICD-10-PCS; 2019-10-14)
DX: O13.4 Gestational [pregnancy-induced] hypertension without significant proteinuria, complicating childbirth (principal); D62 Acute posthemorrhagic anemia; E66.01 Morbid (severe) obesity due to excess calories; O99.214 Obesity complicating childbirth; O99.324 Drug use complicating childbirth; O77.0 Labor and delivery complicated by meconium in amniotic fluid; O14.94 Unspecified pre-eclampsia, complicating childbirth; O76 Abnormality in fetal heart rate and rhythm complicating labor and delivery; O32.4XX0 Maternal care for high head at term, not applicable or unspecified; O99.344 Other mental disorders complicating childbirth; F41.9 Anxiety disorder, unspecified; F15.10 Other stimulant abuse, uncomplicated; Z3A.37 37 weeks gestation of pregnancy; Z37.0 Single live birth; Z23 Encounter for immunization
CPT/HCPCS: 36415; 80053; 80305; 81003; 84550; 85025; 85384; 85610; 85730; 86592; 86886; 86900; 86901; 87653-90; 90715; 94640; J0690; J1885; J2060; J2270; J2405; J2590; J3490; J7120; J7613